=== PATIENT | male | born 1950 | race Caucasian/White ===

== ENCOUNTER 2016-12-24 09:38 | Outpatient (CLI) | payer MEDICARE, OTHER ==
[2014-11-21 01:44] VITALS: BP 146/80
[2016-12-24 10:39] LABS: eGFR (African) > 60; eGFR (Non-African) > 60
== END 2016-12-24 09:40 ==
LOC: LAB 09:38
PROVIDERS: ATTEND Family Medicine
DX: E78.2 Mixed hyperlipidemia (principal); E03.9 Hypothyroidism, unspecified
CPT/HCPCS: 36415; 80053; 80061; 84443

== ENCOUNTER 2016-12-29 09:10 | Outpatient (CLI) | payer MEDICARE, OTHER ==
[2014-11-21 01:44] VITALS: BP 146/80
== END 2016-12-29 09:11 ==
LOC: LAB 09:10
PROVIDERS: ATTEND Family Medicine
DX: Z12.5 Encounter for screening for malignant neoplasm of prostate (principal)
CPT/HCPCS: 36415; G0103

== ENCOUNTER 2018-01-28 08:45 | Outpatient (CLI) | payer MEDICARE, OTHER ==
[2014-11-21 01:44] VITALS: BP 146/80
[2018-01-28 11:22] LABS: eGFR (Non-African) > 60
== END 2018-01-28 08:46 ==
LOC: LAB 08:45
PROVIDERS: ATTEND Family Medicine
DX: E03.9 Hypothyroidism, unspecified (principal); E78.2 Mixed hyperlipidemia
CPT/HCPCS: 80053; 80061; 84443